=== PATIENT | female | born 1970 | race Caucasian/White ===

== ENCOUNTER → 2020-10-08 | Outpatient (CLI) | payer SELFPAY ==
[2020-10-08 14:32] LABS: Candida species (DNA Probe) Negative (NEGATIVE); G. vaginalis (DNA Probe) Negative (NEGATIVE); T. vaginalis (DNA Probe) Negative (NEGATIVE)
[2020-10-11 00:08] LABS: CHLAMYDIA TRACHOMATIS, NAA Negative (Negative)
== END | disposition home or self-care (01) ==
LOC: LAB SHORT 09:46
PROVIDERS: Physician Assistant
DX: N76.0 Acute vaginitis (principal)
CPT/HCPCS: 87480; 87491; 87510; 87591; 87660

== ENCOUNTER 2022-06-13 11:44 | Day surgery (SDC) | payer BC ==
[~2022-06-13] VITALS: Ht 157.5 cm; Wt 78.1 kg
[~2022-06-13 11:44] MED LIST: BUPR150ER PO; CATAPRES-TTS 11 EAC1 TOP; DULO60 PO; Flexeril10 MG PO; GABA100 PO; IMVEXXY4 MCG; KLONOPIN0.5 M8 PO; MELO7.5 PO; MINIPRESS1 MG PO; MIRTAZAPINE7.5 M1 PO; Naltrexone HCl50 MG; RISPERDAL PO; TRAM50 PO; VALTREX PO
--- NOTE | 2022-06-13 12:46 | NUR ---
Patient up to Ambulate independently. Gait steady. Fabian Paws warming gown applied. Surgical site prepped with 2% Chlorhexidine cloth wipe. History, Chart, Medications and Allergies reviewed before start of procedure.Lungs clear T/O to Auscultation. Patient confirms NPO status and agrees with scheduled surgery. Pre-Op teaching done. Pt verbalizes understanding. Patient reports completing Chlorhexadine shower X2 prior to admission to hospital.
--- NOTE | 2022-06-13 14:29 | NUR ---
06/13/22 1429 MERCEDES RAGLAND PT RECEIVED BLOCK PERFORMED BY ANESTHESIA PRIOR TO PROCEDURE.
--- NOTE | 2022-06-13 17:57 | NUR ---
Discharge instructions reviewed with patient. Patient verbalizes understanding. Copy given to patient to take home. POLAR PACK INTACT, BRODY WRAP IN PLACE, PT ABLE TO WIGGLE TOES, CAP REFILL IS LESS THAN 3 SECONDS, TOES WARM. PT STATES PAIN IS "THROBBING" GAVE PERCOCET PER ORDER, PT DENIES NAUSEA.
--- NOTE | 2022-06-13 18:27 | NUR ---
PT PIVOTED WITH ASSIST TO W/C AND TO PRIVATE CAR, NWB TO RIGHT LOWER EXTREMITY. Discharge instructions reviewed with patient. Patient verbalizes understanding. Copy given to patient to take home.
== END 2022-06-13 22:36 | disposition home or self-care (01) ==
LOC: ORSCMMR 11:44 → ORSCSDS 12:30 → ORSCMMR 22:36
PROVIDERS: Orthopaedic Surgery
PROC: 0SJC4ZZ Inspection of Right Knee Joint, Percutaneous Endoscopic Approach (ICD-10-PCS; principal; 2022-06-13 13:00)
PROC: 0MRN0KZ Replacement of Right Knee Bursa and Ligament with Nonautologous Tissue Substitute, Open Approach (ICD-10-PCS; principal; 2022-06-13 13:00)
DX: S83.004A Unspecified dislocation of right patella, initial encounter (principal); M93.261 Osteochondritis dissecans, right knee; I10 Essential (primary) hypertension; M79.7 Fibromyalgia; F41.8 Other specified anxiety disorders; Z79.899 Other long term (current) drug therapy
CPT/HCPCS: 73562-RT; A9270; C1713; C1762; J0690; J1100; J1885; J2250; J2370; J2405; J2704; J2795; J3010; J7120